=== PATIENT | male | born 1980 | race Caucasian/White ===

== ENCOUNTER 2018-09-25 20:55 | Emergency (ER) | payer OTHER ==
[2018-09-25] MEDS ORDERED: Sulfameth/Trimethoprim DS 800-160mg TAB ONE (21:37)
[2018-09-25] MEDS ORDERED: Lidocaine 1% 20 ML MDV ONE (21:53)
== END 2018-09-25 22:27 | disposition home or self-care (01) ==
LOC: MADERS 20:55
DX: L02.211 Cutaneous abscess of abdominal wall (principal); E66.9 Obesity, unspecified
CPT/HCPCS: 10061; J2001

== ENCOUNTER 2018-09-27 09:22 | Emergency (ER) | payer OTHER | END 2018-09-27 09:51 | disposition home or self-care (01) | LOC: MADERS 09:22 | DX: Z48.817 Encounter for surgical aftercare following surgery on the skin and subcutaneous tissue (principal); E66.9 Obesity, unspecified; Z79.899 Other long term (current) drug therapy | CPT/HCPCS: 99282 ==

== ENCOUNTER 2018-09-30 10:59 | Emergency (ER) | payer OTHER ==
[2018-09-30] MEDS ORDERED: Bacitracin Zinc 1 Packet ONE (11:22)
== END 2018-09-30 11:49 | disposition home or self-care (01) ==
LOC: MADERS 10:59
DX: Z48.817 Encounter for surgical aftercare following surgery on the skin and subcutaneous tissue (principal)
CPT/HCPCS: 99282